=== PATIENT | female | born 1955 | race Caucasian/White ===

== ENCOUNTER → 2023-07-03 07:06 | Outpatient (REF) | payer MEDICARE, SELFPAY | LOC: PAVMRI 07:06 | PROVIDERS: ATTENDING PHYSICIAN Specialist; FAMILY PHYSICIAN Family Medicine | DX: M25.511 Pain in right shoulder (principal) | CPT/HCPCS: 73221 ==

== ENCOUNTER → 2023-07-18 09:57 | Outpatient (REF) | payer MEDICARE, SELFPAY | LOC: HWRAD 09:57 | PROVIDERS: ATTENDING PHYSICIAN Specialist; FAMILY PHYSICIAN Family Medicine | DX: M25.511 Pain in right shoulder (principal) | CPT/HCPCS: 73200 ==

== ENCOUNTER 2023-08-29 06:07 | Day surgery (SDC) | payer MEDICARE, SELFPAY ==
--- NOTE | 2023-07-27 12:09 | CM ---
Patient is scheduled for an elective R Reverse TSA on 08/29/23- she is a same day patient. Spoke with patient prior to surgery. Introduced role of Orthopedic Navigator. Patient reports that she lives with her in a two story home. Currently
she functions independently. She does not use any DME. She has had VN services through [facility]. PCP is Luis Fernando Keenan.
Discussed orthopedic program and post surgical plans. Patient will return home when directed by surgeon. Reviewed MD follow up and transition to outpatient therapy. Patient is in agreement with tentative plan and states that her will be home
with her and can assist if needed.
Patient will complete online education.
Plan: Orthopedic Navigator will be involved in the care of patient after surgery and will reassess discharge needs at that time.
[2023-08-09 14:01] VITALS: BMI 29.1
[2023-08-09 14:33] LABS: Hematocrit 34.6 % (37.0-47.0); Hemoglobin 11.5 g/dL (12.0-16.0); Mean Corp Hgb Conc. 33.2 g/dL (33.0-37.0); Mean Corpuscular Hgb 34.5 pg (27.0-31.0); Mean Corpuscular Volume 103.9 fL (81.0-99.0); Mean Platelet Volume 9.6 fL (7.4-10.4); Platelet Count 237 10^3/uL (130-400); Red Blood Cell Count 3.33 10^6/uL (4.20-5.40); Red Cell Dist. Width 14.7 % (11.5-14.5); White Blood Cell Count 6.1 10^3/uL (4.8-10.8)
[2023-08-09 14:51] VITALS: BMI 29.1
[2023-08-09 14:51] LABS: ALT (SGPT) 28 U/L (0-35); AST (SGOT) 41 U/L (14-36); Albumin 4.2 g/dl (3.5-5.0); Alkaline Phosphatase 81 U/L (38-126); Blood Urea Nitrogen 13 mg/dl (7-17); Calcium 9.5 mg/dl (8.4-10.2); Carbon Dioxide 28 mmol/L (22-30); Chloride 101 mmol/L (98-107); Estimated Creatinine Clearance 72 ml/min; Glucose 107 mg/dl (70-99); Sodium 134 mmol/L (135-145); Total Bilirubin 0.4 mg/dl (0.2-1.3); Total Protein 6.6 g/dl (6.3-8.2); eGFR > 60.00
[2023-08-10 08:44] LABS: Glycohemoglobin (HgbA1c) 5.6 % (4.0-5.6)
[2023-08-29] VITALS (9 sets, daily range): BP systolic 100–122; BP diastolic 51–66; BMI 29.1
[2023-08-29] MEDS: TYLENOL 1000 MG PO (06:31)
[2023-08-29] MEDS: CELEBREX 200 MG PO (06:31)
[2023-08-29] MEDS: NORMOSOL-R 1000 IV ×2 (06:31→09:17)
[2023-08-29] MEDS: ANCEF 5 IV (10:59)
== END 2023-08-29 11:05 | disposition home or self-care (01) ==
LOC: SDS 06:07
PROVIDERS: ATTENDING PHYSICIAN Specialist; FAMILY PHYSICIAN Family Medicine; OTHER PHYSICIAN Physician Assistant
DX: M19.011 Primary osteoarthritis, right shoulder (principal); T84.028A Dislocation of other internal joint prosthesis, initial encounter; Y83.1 Surgical operation with implant of artificial internal device as the cause of abnormal reaction of the patient, or of later complication, without mention of misadventure at the time of the procedure
CPT/HCPCS: 23472; 36415; 73020; 80053; 83036; 85027; 86850; 86900; 86901; 87070; 93005; C1713; C1776